=== PATIENT | male | born 1955 | race Caucasian/White ===

== ENCOUNTER 2018-01-09 08:31 | Day surgery (SDC) | payer OTHER ==
[2018-01-09] MEDS ORDERED: LIDOCAINE 4% SOLUTION 50 ML BTL (10:04)
[2018-01-09] MEDS ORDERED: DIPHENHYDRAMINE 50 MG INJ (10:30)
[2018-01-09] MEDS ORDERED: MIDAZOLAM 1 MG/ML 2 ML INJ ×2 (10:59)
[2018-01-09] MEDS ORDERED: FENTAnyl 50 MCG/ML VIAL (10:59)
== END 2018-01-09 11:22 | disposition home or self-care (01) ==
LOC: GIL 08:31
DX: Z12.11 Encounter for screening for malignant neoplasm of colon (principal); K21.9 Gastro-esophageal reflux disease without esophagitis; K29.50 Unspecified chronic gastritis without bleeding; B96.81 Helicobacter pylori [H. pylori] as the cause of diseases classified elsewhere; K57.90 Diverticulosis of intestine, part unspecified, without perforation or abscess without bleeding; K22.70 Barrett's esophagus without dysplasia
CPT/HCPCS: 43239; 88305; 88312